=== PATIENT | female | born 1970 | race Caucasian/White ===

== ENCOUNTER → 2017-11-26 | Outpatient (CLI) | payer OTHER ==
[~2017-11-26] MED LIST: ASAC800T PO; LORA10TA PO; TAB-TAB PO; Z.0.BCPILL PO
[2017-11-26 09:03] LABS: AUTOMATED NEUTROPHIL # 2.8 TH/MM3 (1.8-7.7); BASOPHIL % 0.8 % (0.0-2.0); EOSINOPHIL # 0.3 TH/MM3 (0-0.4); EOSINOPHIL % 4.3 % (0.0-4.0); HEMOGLOBIN 11.9 GM/DL (11.6-15.3); LYMPH % 40.7 % (9.0-44.0); LYMPHOCYTE # 2.4 TH/MM3 (1.0-4.8); MEAN CELL VOLUME 88.6 FL (80.0-100.0); MEAN CORPUSCULAR HEMOGLOBIN 29.2 PG (27.0-34.0); MEAN CORPUSCULAR HGB CONC 32.9 % (32.0-36.0); MEAN PLATELET VOLUME 7.6 FL (7.0-11.0); MONO % 6.8 % (0.0-8.0); MONOCYTE # 0.4 TH/MM3 (0-0.9); NEUT % 47.4 % (16.0-70.0); PLATELET COUNT 221 TH/MM3 (150-450); RED BLOOD COUNT 4.06 MIL/MM3 (4.00-5.30); RED CELL DISTRIBUTION WIDTH 14.5 % (11.6-17.2); WHITE BLOOD COUNT 5.9 TH/MM3 (4.0-11.0)
[2017-11-26 10:43] LABS: ALBUMIN 3.1 GM/DL (3.4-5.0); AST (GOT) 16 U/L (15-37); BICARBONATE 26.9 MEQ/L (21.0-32.0); BLOOD UREA NITROGEN 7 MG/DL (7-18); CALCIUM 8.5 MG/DL (8.5-10.1); CHLORIDE 108 MEQ/L (98-107); CREATININE 0.78 MG/DL (0.50-1.00); GLOMERULAR FILTRATION RATE 80 ML/MIN (>89); GLUCOSE,FASTING 78 MG/DL (74-99); SODIUM (NA) 143 MEQ/L (136-145)
[2017-11-26 10:45] LABS: ALT (GPT) 18 U/L (10-53); C-REACTIVE PROTEIN LESS THAN 0.29 MG/DL (0.00-0.30)
[2017-11-26 10:47] LABS: ALKALINE PHOSPHATASE 54 U/L (45-117); TOTAL BILIRUBIN ADULT 0.9 MG/DL (0.2-1.0)
== END ==
LOC: OLAB 07:11
PROVIDERS: ATTEND Internal Medicine Gastroenterology
DX: K51.211 Ulcerative (chronic) proctitis with rectal bleeding (principal)
CPT/HCPCS: 36415; 80053; 85025; 86140